=== PATIENT | female | born 1970 | race Caucasian/White ===

== ENCOUNTER 2016-11-20 07:29 | Emergency (ER) | payer OTHER ==
[~2016-11-20] VITALS: Wt 108.9 kg
[~2016-11-20 07:29] MED LIST: ALBUTEROL0.09 MG/A1 INH; AMOXICILLIN500 M2 PO; B COMPLETE1 EACH PO; BUPROPION HCL150 M1 PO; CRESTOR20 MG PO; DEBROX15 ML OT; FLEXERIL10 MG PO; Fioricet 325 MG1 TAB PO; HYDROXYYZINE PA25 MG PO; IRON325 M1 PO; LEVOFLOXACIN500 MG PO; LIPITOR20 MG PO; PREDNICOT20 MG PO; PREDNISONE10 MG PO; PREDNISONE20 M1 PO; PRILOSEC20 MG PO; PROAIR HFA8.5 GM INH; PROVENTIL0.09 MG/A1 INH; QVAR0.08 MG/AC INH; RISPERDAL4 MG PO; TRAZODONE50 MG PO; ULTRAM50 MG PO; VIBRAMYCIN100 MG PO; VISTARIL25 MG PO; VOLTAREN50 M1 PO; ZIPSOR25 M1 PO; ZITHROMAX250 MG PO; ZOLOFT50 MG PO; ZYRTEC10 MG PO; [UNRECOGNIZED DRUG - OTHER] PO
[2016-11-20] MEDS ORDERED: PROVENTIL0.09 MG/A1 INH (08:57)
== END 2016-11-20 09:17 | disposition home or self-care (01) ==
LOC: ED 07:29
DX: J20.9 Acute bronchitis, unspecified (principal); F17.200 Nicotine dependence, unspecified, uncomplicated; Z98.51 Tubal ligation status; Z79.899 Other long term (current) drug therapy

== ENCOUNTER → 2016-11-21 | Outpatient (CLI) | payer OTHER | END | disposition home or self-care (01) | LOC: MAMMO 13:37 | DX: Z12.31 Encounter for screening mammogram for malignant neoplasm of breast (principal) ==

== ENCOUNTER 2016-11-26 12:57 | Emergency (ER) | payer OTHER ==
[~2016-11-26] VITALS: Ht 165.1 cm; Wt 108.9 kg
[2016-11-26] MEDS ORDERED: CEPHALEXIN500 M1 PO (13:28)
== END 2016-11-26 13:34 | disposition home or self-care (01) ==
LOC: ED 12:57
DX: S61.215A Laceration without foreign body of left ring finger without damage to nail, initial encounter (principal); F17.200 Nicotine dependence, unspecified, uncomplicated; Z98.51 Tubal ligation status; Z79.899 Other long term (current) drug therapy; W27.8XXA Contact with other nonpowered hand tool, initial encounter; Y93.89 Activity, other specified; Y92.009 Unspecified place in unspecified non-institutional (private) residence as the place of occurrence of the external cause; Y99.9 Unspecified external cause status

== ENCOUNTER → 2017-12-27 | Outpatient (CLI) | payer OTHER ==
[~2017-12-27] MED LIST changes: +CEPHALEXIN500 M1 PO
== END | disposition home or self-care (01) ==
LOC: MAMMO 08:15
DX: Z12.31 Encounter for screening mammogram for malignant neoplasm of breast (principal)

== ENCOUNTER 2018-08-08 19:16 | Emergency (ER) | payer OTHER ==
[~2018-08-08] VITALS: Ht 165.1 cm; Wt 108.9 kg
[2018-08-08] MEDS ORDERED: CEPHALEXIN500 M1 PO (19:29)
== END 2018-08-08 19:38 | disposition home or self-care (01) ==
LOC: ED 19:16
DX: T23.161A Burn of first degree of back of right hand, initial encounter (principal); T31.0 Burns involving less than 10% of body surface; Z79.899 Other long term (current) drug therapy; Z79.2 Long term (current) use of antibiotics; X19.XXXA Contact with other heat and hot substances, initial encounter; Y93.89 Activity, other specified; Y92.89 Other specified places as the place of occurrence of the external cause; Y99.8 Other external cause status